=== PATIENT | male | born 1955 | race Caucasian/White ===

== ENCOUNTER → 2023-07-09 09:45 | Outpatient (REF) | payer BC, SELFPAY | LOC: MRI 3T 09:45 | PROVIDERS: ATTENDING PHYSICIAN Surgery; FAMILY PHYSICIAN Family Medicine | DX: R97.20 Elevated prostate specific antigen [PSA] (principal) | CPT/HCPCS: 72197; A9575 ==

== ENCOUNTER → 2024-03-31 10:01 | Outpatient (REF) | payer BC, SELFPAY ==
[2024-03-31 10:58] LABS: % Basophils 1.1 % (0-2); % Eosinophils 3.4 % (0-6); % Immature Granulocytes 0.4 % (0-0.5); % Lymphocytes 32.1 % (20.5-51.1); % Monocytes 11.2 % (1.7-9.3); % Neutrophils 51.8 % (42.2-75.2); Absolute Basophils 0.1 10^3/uL (0-0.2); Absolute Eosinophils 0.2 10^3/uL (0-0.7); Absolute Lymphocytes 1.8 10^3/uL (1.2-3.4); Absolute Monocytes 0.6 10^3/uL (0.1-0.6); Absolute Neutrophils 2.9 10^3/uL (1.4-6.5); Hematocrit 43.5 % (39.0-52.0); Mean Corp Hgb Conc. 34.5 g/dL (33.0-37.0); Mean Corpuscular Hgb 30.1 pg (27.0-31.0); Mean Corpuscular Volume 87.2 fL (80.0-94.0); Mean Platelet Volume 9.3 fL (7.4-10.4); Nucleated Red Blood Cells % 0 % (-); Platelet Count 216 10^3/uL (130-400); Red Blood Cell Count 4.99 10^6/uL (4.70-6.10); Red Cell Dist. Width 13.2 % (11.5-14.5); White Blood Cell Count 5.6 10^3/uL (4.8-10.8)
[2024-03-31 12:15] LABS: D-Dimer < 0.27 ug/mlFEU (0.00-0.50)
[2024-03-31 12:19] LABS: ALT (SGPT) 49 U/L (0-50); AST (SGOT) 27 U/L (17-59); Albumin 4.6 g/dl (3.5-5.0); Alkaline Phosphatase 86 U/L (38-126); Blood Urea Nitrogen 10 mg/dl (9-20); Carbon Dioxide 30 mmol/L (22-30); Chloride 103 mmol/L (98-107); Glucose 97 mg/dl (70-99); Potassium 4.4 mmol/L (3.5-5.1); Sodium 141 mmol/L (135-145); Total Bilirubin 0.7 mg/dl (0.2-1.3); Total Protein 7.1 g/dl (6.3-8.2); eGFR > 60.00
[2024-03-31 12:22] LABS: NT-proBNP < 20.0 pg/ml
[2024-03-31 12:30] LABS: Vitamin D, 25-OH*** 36.1 ng/mL (30-80)
[2024-04-01 20:45] LABS: PSA Total 4.1 ng/mL (0.0-4.0)
== END ==
LOC: REG 10:01
PROVIDERS: ATTENDING PHYSICIAN Nurse Practitioner Primary Care; FAMILY PHYSICIAN Surgery
DX: R06.09 Other forms of dyspnea (principal); Z76.89 Persons encountering health services in other specified circumstances; E55.9 Vitamin D deficiency, unspecified; R05.1 Acute cough; R97.20 Elevated prostate specific antigen [PSA]
CPT/HCPCS: 36415; 71046; 80053; 82306; 83880; 84153; 84154; 85025; 85379

== ENCOUNTER → 2024-04-15 06:54 | Outpatient (REF) | payer BC, SELFPAY | LOC: RAD 06:54 | PROVIDERS: ATTENDING PHYSICIAN Nurse Practitioner Primary Care | DX: E78.2 Mixed hyperlipidemia (principal); I25.3 Aneurysm of heart; I51.89 Other ill-defined heart diseases; R06.09 Other forms of dyspnea | CPT/HCPCS: 75571; 93005; 93306 ==

== ENCOUNTER → 2024-04-15 07:04 | Outpatient (REF) | payer BC, SELFPAY | LOC: RCS 07:04 | PROVIDERS: ATTENDING PHYSICIAN Nurse Practitioner Primary Care | DX: I25.3 Aneurysm of heart (principal); I51.89 Other ill-defined heart diseases; R06.09 Other forms of dyspnea | CPT/HCPCS: 93005; 93306 ==

== ENCOUNTER 2024-05-27 06:22 | Day surgery (SDC) | payer BC, SELFPAY | END 2024-05-27 11:30 | disposition home or self-care (01) | LOC: GI 06:22 | PROVIDERS: ATTENDING PHYSICIAN Internal Medicine; FAMILY PHYSICIAN Nurse Practitioner Primary Care | DX: Z12.11 Encounter for screening for malignant neoplasm of colon (principal); K57.30 Diverticulosis of large intestine without perforation or abscess without bleeding; K64.8 Other hemorrhoids; K55.20 Angiodysplasia of colon without hemorrhage; D12.5 Benign neoplasm of sigmoid colon; D12.8 Benign neoplasm of rectum; K63.5 Polyp of colon; K62.1 Rectal polyp; Z86.0100 Personal history of colon polyps, unspecified; Z80.0 Family history of malignant neoplasm of digestive organs | CPT/HCPCS: 45385; 45380; 88305 ==

== ENCOUNTER → 2024-09-07 09:02 | Outpatient (REF) | payer BC, SELFPAY | LOC: RCS 09:02 | PROVIDERS: ATTENDING PHYSICIAN Nurse Practitioner Primary Care | DX: E78.2 Mixed hyperlipidemia (principal); R06.09 Other forms of dyspnea | CPT/HCPCS: 93017; 93350 ==

== ENCOUNTER → 2025-02-17 15:48 | Outpatient (REF) | payer BC, SELFPAY | LOC: RAD 15:48 | PROVIDERS: ATTENDING PHYSICIAN Surgery; FAMILY PHYSICIAN Nurse Practitioner Primary Care | DX: N50.89 Other specified disorders of the male genital organs (principal) | CPT/HCPCS: 76870; 93976 ==